=== PATIENT | female | born 1990 | race Caucasian/White ===

== ENCOUNTER → 2024-07-11 08:53 | Outpatient (REF) | payer OTHER, SELFPAY | LOC: PNTC 08:53 | PROVIDERS: ATTENDING PHYSICIAN Obstetrics & Gynecology | DX: O09.519 Supervision of elderly primigravida, unspecified trimester (principal) | CPT/HCPCS: 76816 ==

== ENCOUNTER → 2024-08-21 07:35 | Outpatient (REF) | payer OTHER, SELFPAY | LOC: PNTC 07:35 | PROVIDERS: ATTENDING PHYSICIAN Obstetrics & Gynecology | DX: O09.519 Supervision of elderly primigravida, unspecified trimester (principal) | CPT/HCPCS: 76816 ==

== ENCOUNTER 2024-10-09 17:21 | Inpatient (IN) | payer OTHER, SELFPAY ==
[2024-10-09 17:40] VITALS: BP 127/89; BMI 30.8
[2024-10-09 19:04] LABS: Hematocrit 36.1 % (37.0-47.0); Hemoglobin 12.7 g/dL (12.0-16.0); Mean Corp Hgb Conc. 35.2 g/dL (33.0-37.0); Mean Corpuscular Volume 98.4 fL (81.0-99.0); Nucleated Red Blood Cells % 0 %; Platelet Count 267 10^3/uL (130-400); Red Cell Dist. Width 13.1 % (11.5-14.5)
[2024-10-09] MEDS: CYTOTEC 25 MICROGRAM VAG (19:59)
[2024-10-10] MEDS: CYTOTEC 50 MICROGRAM PO ×4 (00:14→16:30)
[2024-10-10] MEDS: CYTOTEC PO ×2 (08:20→20:00)
[2024-10-10] MEDS: LR 1000 IV (21:40)
[2024-10-10] MEDS: PITOCIN 30 UNITS/NSS 500 ML IV (21:40)
[2024-10-11] MEDS: STADOL 1 MG IV ×3 (00:43→06:46)
[2024-10-11] MEDS: LR 1000 IV ×3 (05:55→19:47)
[2024-10-11] MEDS: FENTANYL/BUPIVACAINE 100 EPIDURAL ×2 (09:32→18:07)
[2024-10-11] MEDS: SUBLIMAZE 100 MCG EPIDURAL (09:32)
[2024-10-11] MEDS: ZOFRAN 4 MG IV (17:38)
[2024-10-12] MEDS: LR 1000 IV (02:33)
[2024-10-12] MEDS: FENTANYL/BUPIVACAINE 100 EPIDURAL ×2 (02:34→10:13)
[2024-10-12] MEDS: TYLENOL 650 MG PO ×2 (10:10→20:31)
[2024-10-12] MEDS: BICITRA 30 ML PO (13:18)
[2024-10-12] MEDS: ZITHROMAX INFUSION 250 IV (13:18)
[2024-10-12] MEDS: TORADOL 15 MG IV (20:30)
[2024-10-12] MEDS: COLACE 100 MG PO (20:32)
[2024-10-13] MEDS: TYLENOL 650 MG PO ×2 (01:27→20:52)
[2024-10-13] MEDS: TORADOL 15 MG IV ×3 (01:27→14:15)
[2024-10-13] MEDS: PRENATAL PLUS 1 TABLET PO ×2 (01:27→20:44)
[2024-10-13 04:47] LABS: Hematocrit 25.5 % (37.0-47.0); Hemoglobin 9.3 g/dL (12.0-16.0); Mean Corp Hgb Conc. 36.5 g/dL (33.0-37.0); Mean Corpuscular Volume 98.1 fL (81.0-99.0); Platelet Count 201 10^3/uL (130-400); Red Cell Dist. Width 12.9 % (11.5-14.5)
[2024-10-13] MEDS: COLACE 100 MG PO ×2 (08:32→20:44)
[2024-10-13] MEDS: FEOSOL 325 MG PO (08:32)
[2024-10-13] MEDS: MOTRIN 600 MG PO (20:52)
[2024-10-14] MEDS: TYLENOL 650 MG PO ×2 (04:46→10:33)
[2024-10-14] MEDS: MOTRIN 600 MG PO ×4 (04:46→23:24)
[2024-10-14] MEDS: FEOSOL 325 MG PO (09:08)
[2024-10-14] MEDS: COLACE 100 MG PO ×2 (09:08→19:59)
[2024-10-14 10:25] LABS: Hematocrit 27.2 % (37.0-47.0); Hemoglobin 9.4 g/dL (12.0-16.0); Mean Corp Hgb Conc. 34.6 g/dL (33.0-37.0); Mean Corpuscular Volume 99.6 fL (81.0-99.0); Platelet Count 236 10^3/uL (130-400); Red Cell Dist. Width 13.2 % (11.5-14.5)
[2024-10-14 10:29] LABS: ALT (SGPT) 35 U/L (0-35); AST (SGOT) 40 U/L (14-36); Albumin 2.8 g/dl (3.5-5.0); Alkaline Phosphatase 86 U/L (38-126); Blood Urea Nitrogen 9 mg/dl (7-17); Calcium 8.6 mg/dl (8.4-10.2); Carbon Dioxide 31 mmol/L (22-30); Chloride 109 mmol/L (98-107); Estimated Creatinine Clearance > 125 ml/min; Glucose 75 mg/dl (70-99); Potassium 4.4 mmol/L (3.5-5.1); Sodium 137 mmol/L (135-145); Total Protein 5.2 g/dl (6.3-8.2); eGFR > 60.00
[2024-10-14] MEDS: PRENATAL PLUS 1 TABLET PO (20:00)
--- NOTE | 2024-10-15 02:25 | DOWNTIME ---
There was a [employer] Downtime on 10/15/2024 from 0100 to 10/15/2024 at 0220. Downtime documentation of patient's care, including medication administrations, has been reconciled in the electronic record per guidelines. Refer to the
patient's paper chart under the miscellaneous tab to see printed paper medication records and downtime forms.
[2024-10-15] MEDS: COLACE 100 MG PO (08:45)
[2024-10-15] MEDS: PRENATAL PLUS 1 TABLET PO (08:45)
[2024-10-15] MEDS: FEOSOL 325 MG PO (08:45)
[2024-10-15] MEDS: MOTRIN 600 MG PO (08:45)
--- NOTE | 2024-10-15 08:55 | W.DS.TRANS ---
DC Summary - [facility]
-
Discharge Instructions:
Discharge Diagnosis/Procedures delivery
Instructions:
Stand-Alone Forms: LDRP Delivery
Changes to Home Medications: No
Discharge Medications:
DC Medications w/original date entered in [facility]
prenat.vits,preet,fsm-wgib-izyow 1 tab PO HS 10/09/24
acetaminophen 325 mg tablet 650 mg (2 x 325 mg) PO Q4HPRN PRN mild pain #0 tabs 10/15/24
calcium carbonate (Calcium Antacid) 400 mg (2 x 200 mg calcium (500 mg)) PO Q6HPRN PRN indigestion #0 tabs 10/15/24
docusate sodium 100 mg capsule 100 mg PO BID #0 caps 10/15/24
ferrous sulfate 325 mg (65 mg iron) tablet (FeroSul) 325 mg PO DAILY #0 tabs 10/15/24
ibuprofen 600 mg tablet 600 mg PO Q6HPRN PRN cramps #30 tabs 10/15/24
sennosides 8.6 mg tablet (Jerica-gt) 17.2 mg (2 x 8.6 mg) PO HSPRN PRN constipation #0 tabs 10/15/24
simethicone 80 mg chewable tablet 80 mg PO TIDPRN PRN flatulence #0 tabs 10/15/24
Home Medication Changes
Pending Results: No
Total time spent discharging patient (in min): 20
[2024-10-15 14:19] LABS: Syphilis/T. pallidum Ab Reflex Negative (Negative)
== END 2024-10-15 12:30 | disposition home or self-care (01) | DRG 787 ==
LOC: LDRP 17:21
PROVIDERS: Obstetrics & Gynecology; Student in an Organized Health Care Education/Training Program; ADMITTING PHYSICIAN Obstetrics & Gynecology; FAMILY PHYSICIAN Internal Medicine
PROC: 3E0P7VZ Introduction of Hormone into Female Reproductive, Via Natural or Artificial Opening (ICD-10-PCS; 2024-10-09)
PROC: 3E033VJ Introduction of Other Hormone into Peripheral Vein, Percutaneous Approach (ICD-10-PCS; 2024-10-10)
PROC: 0U7C7DJ Dilation of Cervix with Intraluminal Device, Temporary, Via Natural or Artificial Opening (ICD-10-PCS; 2024-10-11)
PROC: 10D00Z1 Extraction of Products of Conception, Low, Open Approach (ICD-10-PCS; 2024-10-12)
PROC: 10907ZC Drainage of Amniotic Fluid, Therapeutic from Products of Conception, Via Natural or Artificial Opening (ICD-10-PCS; 2024-10-12)
DX: O48.0 Post-term pregnancy (principal); D62 Acute posthemorrhagic anemia; Z3A.40 40 weeks gestation of pregnancy; Z37.0 Single live birth; O77.0 Labor and delivery complicated by meconium in amniotic fluid; O99.344 Other mental disorders complicating childbirth; F41.9 Anxiety disorder, unspecified; O76 Abnormality in fetal heart rate and rhythm complicating labor and delivery; O36.8330 Maternal care for abnormalities of the fetal heart rate or rhythm, third trimester, not applicable or unspecified; O62.1 Secondary uterine inertia; R31.0 Gross hematuria; O99.02 Anemia complicating childbirth
CPT/HCPCS: 36415; 80053; 85025; 85027; 86780; 86850; 86900; 86901

== ENCOUNTER 2024-12-26 11:38 | Outpatient (RCR) | payer OTHER, SELFPAY | END 2024-12-26 23:59 | disposition home or self-care (01) | LOC: RPT 11:38 | PROVIDERS: ATTENDING PHYSICIAN Obstetrics & Gynecology; FAMILY PHYSICIAN Family Medicine | DX: M62.89 Other specified disorders of muscle (principal); Z73.6 Limitation of activities due to disability; M62.81 Muscle weakness (generalized); M62.08 Separation of muscle (nontraumatic), other site | CPT/HCPCS: 97110; 97162; 97530 ==